=== PATIENT | male | born 1995 | race African-American/Black ===

== ENCOUNTER 2022-11-03 22:28 | Emergency (ER) | payer OTHER ==
[2022-11-03 22:40] VITALS: BP 122/69; PULSE 88; RESP 18; TEMP 98.2; BMI 19.5
[2022-11-04 00:58] LABS: THROAT:GRP A STREP DETECTED (NOTDETECTED)
== END 2022-11-03 23:33 | disposition home or self-care (01) ==
LOC: JER 22:28
DX: J02.0 Streptococcal pharyngitis (principal); H66.91 Otitis media, unspecified, right ear
CPT/HCPCS: 0241U-QW; 87651; 99283-25